=== PATIENT | male | born 1945 | race Caucasian/White ===

== ENCOUNTER 2021-11-06 07:01 | Day surgery (SDC) | payer MEDICARE ==
[2021-11-01 16:03] LABS: CLARITY,URINE CLEAR (Clear); COLOR,URINE YELLOW (Yellow); GLUCOSE, URINE NEGATIVE (Neg); KETONES,URINE NEGATIVE (Neg); LEUKOCYTE ESTERASE ,URINE NEGATIVE (Neg); NITRITES, URINE NEGATIVE (Neg); OCCULT BLOOD,URINE NEGATIVE (Neg); PH,URINE 5.5 (4.8-8.0); PROTEIN,URINE NEGATIVE (Neg); UROBILINOGEN,URINE 0.2 E.U/dL (0.2-1.0)
[2021-11-01 16:04] LABS: UA COLLECTION TYPE CLN CATCH MIDSTREAM
[2021-11-01 16:10] LABS: BASOPHILS # (AUTO) 0.1 X10'3 (0-0.2); BASOPHILS % (AUTO) 1.1 % (0-1); EOSINOPHILS # (AUTO) 0.2 X10'3 (0-0.9); EOSINOPHILS % (AUTO) 2.8 % (0-6); LYMPHOCYTES # (AUTO) 1.4 X10'3 (1.1-4.8); MEAN CORPUSCULAR HEMOGLOBIN 30.9 PG (27.0-31.0); MEAN CORPUSCULAR HGB CONC 33.1 g/dL (33.0-36.5); MEAN CORPUSCULAR VOLUME 93.1 FL (78-98); MEAN PLATELET VOLUME 9.9 FL (7.4-10.4); MONOCYTES # (AUTO) 0.8 X10'3 (0-0.9); MONOCYTES % (AUTO) 10.4 % (2-12); NEUTROPHILS # (AUTO) 5.4 X10'3 (1.8-7.7); NEUTROPHILS % (AUTO) 67.7 % (42-75); PRE OP HEMATOCRIT 42.2 % (42.0-52.0); PRE OP PLATELET COUNT 257 X10'3 (140-440); RED BLOOD COUNT 4.53 X10'6 (4.70-6.10); RED CELL DISTRIBUTION WIDTH 13.8 % (11.5-14.5)
[2021-11-01 16:24] LABS: ALBUMIN 3.7 G/DL (3.4-5.0); ALBUMIN/GLOBULIN RATIO 1.1 (1.1-1.5); ALKALINE PHOSPHATASE 101 IU/L (46-116); BLOOD UREA NITROGEN 20 MG/DL (7-18); BUN/CREATININE RATIO 19.4 (5.4-32.0); CALCIUM 9.6 MG/DL (8.5-10.1); CHLORIDE 105 MMOL/L (99-107); CREATININE 1.03 MG/DL (0.60-1.10); PRE OP ALT 41 U/L (30-65); PRE OP ANION GAP 10 (8-16); PRE OP AST 22 U/L (10-37); PRE OP BILIRUB, TOTAL 0.3 MG/DL (0.0-1.0); PRE OP GLUCOSE 95 MG/DL (70-104); PRE OP POTASSIUM 4.4 MMOL/L (3.4-5.1); PRE OP SODIUM 142 MMOL/L (135-145); TOTAL CARBON DIOXIDE 26.9 MMOL/L (24-32); TOTAL PROTEIN 7.1 G/DL (6.4-8.2); eGFR 70 ML/MIN
[~2021-11-06] VITALS: Ht 193 cm; Wt 133.4 kg
[2021-11-06] VITALS (19 sets, daily range): BP systolic 136–159; BP diastolic 78–91
[~2021-11-06 07:01] MED LIST: ACET-1025 PO; ACET-3080 PO; APIX5TAB3 PO; ARNICARE; ATOR-2 PO; BUPIVAcaine 0.5% inj/PF 30 ML ONE; CBD; CHONDROITIN PO; DICL20GE; DOCUMENT DATE & TIME OF BETA-BLOCKER PO ONE; GLUCOSAMINE PO; Hydrochlorothiazide PO; LOP25T PO; LORA-269 PO; LOSA100T57 PO; OMEP20TA23 PO; OXYGEN NASALCANN; TOLNAFTATE 1%; ceFAZolin inj. 3,000 MG in normal saline 100ml IV soln 100 ML IV ONE; famotidine 20mg tablet PO ONE; ringers solution, lacted 1,000 ML IV SCH
[2021-11-06] MEDS ORDERED: BUPIVAcaine 0.5% inj/PF 30 ml vial IJ ONE (07:11)
[2021-11-06] MEDS ORDERED: acetaminophen 1000 MG/100ml vial IV ONE (08:32)
[2021-11-06] MEDS ORDERED: neostigmine methylsulfate 1 MG/ML 10ml vial ONE (08:32)
[2021-11-06] MEDS ORDERED: glycopyrrolate 0.2mg/ml inj ONE (08:32)
[2021-11-06] MEDS ORDERED: sevoflurane 250ml liquid IH ONE (08:32)
[2021-11-06] MEDS ORDERED: midazolam 1 mg/ML 2ml injection ONE (08:45)
[2021-11-06] MEDS ORDERED: fentaNYL /PF 50mcg/ml 5ml ampule ONE (08:45)
[2021-11-06] MEDS ORDERED: LIDOcaine 2% (20mg/ml) 5ml vial ONE (08:48)
[2021-11-06] MEDS ORDERED: propofol inj 20 ML IV ONE (08:48)
[2021-11-06] MEDS ORDERED: dexamethasone sod phosphate 4mg/ml inj. ONE (09:05)
[2021-11-06] MEDS ORDERED: rocuronium 10mg/ml inj IV ONE ×2 (09:05→10:44)
[2021-11-06] MEDS ORDERED: ondansetron/PF 4mg/2ml inj ONE (09:06)
[2021-11-06] MEDS ORDERED: labetalol 20mg/4ml (5mg/ml) syringe IV ONE (09:14)
[2021-11-06] MEDS ORDERED: meperidine/PF 25mg/ml syringe IV PRN ×3 (09:20)
[2021-11-06] MEDS ORDERED: morphine 2 MG/ML inj. syringe IV PRN (09:20)
[2021-11-06] MEDS ORDERED: ringers solution, lacted 1,000 ML IV SCH (09:20)
[2021-11-06] MEDS ORDERED: proCHLORperazine 10 MG/2 ml inj IV PRN (09:20)
[2021-11-06] MEDS ORDERED: morphine 4 MG/ML inj SYRINge IV PRN (09:20)
[2021-11-06] MEDS ORDERED: ondansetron/PF 4mg/2ml inj IV PRN (09:20)
[2021-11-06] MEDS ORDERED: sugammadex 200mg/2ml injection IV ONE (10:55)
--- NOTE | 2021-11-06 11:02 | NUR ---
Received from OR via [facility] , accompanied by Anesthesiologist Dr. Emmanuel and report given by Anesthesiolgist. Pt is alert and oriented, answering questions appropriately, following directions, able to move all extremenities to command. 3 small surgical sites seen with dermabond in place, no bleeding noted. o2 at 10 ltr mask, vital signs stable.
--- NOTE | 2021-11-06 13:02 | NUR ---
pt disconnected from alarm security or surveillance monitor and dressed, pt assisted to stand at bedside to try and urinate. no results. pt placed back on monitor and pulse ox monitor waiting to urinate. iv fluids remain infusing
--- NOTE | 2021-11-06 14:02 | NUR ---
pt taken to [facility] unit report given to Adelina NICHOLAS, pt awaiting to urinate prior to discharge Addendum: 11/06/21 at 1426 by Zulema Salgado RN Amended: Links added.
--- NOTE | 2021-11-06 14:10 | NUR ---
TOOK OVER CARE OF PT, PT AND MOVED TO ROOM 245, VSS-PT PAIN MINIMAL 2/10, GIVEN COKE TO DRINK AND ENCOURAGED TO WALK A BIT. PT UP AND MOVING ABOUT ROOM SAFELY.
--- NOTE | 2021-11-06 15:30 | NUR ---
PT WALKED AND DRANK FLUID, ATTEMPTED TO VOID X2- UNSUCCESSFULL, F/C PLACED WITH UROJET-YELLOW URINE OUT, PT TOLERATED WELL.
[2021-11-06] MEDS ORDERED: LIDOcaine 2% 10ml TOPICAL JELLY (Urojet) MM ONE (15:35)
[2021-11-06] MEDS ORDERED: HYDROcodone/acetaminophen 5mg/325mg tablet PO ONE (16:20)
--- NOTE | 2021-11-06 16:32 | NUR ---
PT DRESSED WITH F/C ATTACHED, GIVEN F/C CARE INSTRUCTIONS-ALL QUESTIONS ANSWERED, VSS, GIVEN 1 NORCO FOR PAIN, NO OTHER CHANGES IN ASSESSMENT, PT TAKEN VIA W/C TO VEHICLE- TO GIVE TRANSPORT. D/C INSTRUCTIONS GIVEN TO PT EARLIER BY PREVIOUS RN-RECONFIRMED WITH PT AND .
== END 2021-11-06 16:32 | disposition home or self-care (01) ==
LOC: PAS 07:01
PROVIDERS: ATTEND Surgery
DX: K40.90 Unilateral inguinal hernia, without obstruction or gangrene, not specified as recurrent (principal); I48.91 Unspecified atrial fibrillation; G47.30 Sleep apnea, unspecified; I10 Essential (primary) hypertension; M19.90 Unspecified osteoarthritis, unspecified site; Z20.822 Contact with and (suspected) exposure to COVID-19; Z79.899 Other long term (current) drug therapy; Z79.01 Long term (current) use of anticoagulants; Z88.8 Allergy status to other drugs, medicaments and biological substances; Z87.891 Personal history of nicotine dependence; Z90.81 Acquired absence of spleen; Z96.641 Presence of right artificial hip joint; Z98.890 Other specified postprocedural states; Z86.73 Personal history of transient ischemic attack (TIA), and cerebral infarction without residual deficits; Z80.9 Family history of malignant neoplasm, unspecified
CPT/HCPCS: 36415; 49650; 80053; 81003; 82948; 85025; J0131; J0690; J1100; J2250; J2270; J2405; J2704; J2710; J3010; J3490; J7120; S0020; U0003; U0005; Z7512; A4215; A4618; C1758; C1781

== ENCOUNTER 2023-04-28 11:31 | Day surgery (SDC) | payer MEDICARE ==
[2023-04-27 11:38] LABS: BASOPHILS # (AUTO) 0.1 X10'3 (0-0.2); BASOPHILS % (AUTO) 1.2 % (0-1); EOSINOPHILS # (AUTO) 0.2 X10'3 (0-0.9); HEMATOCRIT 45.1 % (42.0-52.0); MEAN CORPUSCULAR VOLUME 94.3 FL (78-98); NEUTROPHILS % (AUTO) 64.9 % (42-75); RED BLOOD COUNT 4.78 X10'6 (4.70-6.10)
[2023-04-27 11:40] LABS: EOSINOPHILS % (AUTO) 2.3 % (0-6); HEMOGLOBIN 14.9 g/dl (14.0-17.9); LYMPHOCYTES # (AUTO) 1.2 X10'3 (1.1-4.8); LYMPHOCYTES % (AUTO) 17.1 % (21-51); MEAN CORPUSCULAR HEMOGLOBIN 31.2 PG (27.0-31.0); MEAN CORPUSCULAR HGB CONC 33.1 g/dL (33.0-36.5); MEAN PLATELET VOLUME 9.9 FL (7.4-10.4); MONOCYTES % (AUTO) 14.5 % (2-12); NEUTROPHILS # (AUTO) 4.6 X10'3 (1.8-7.7); PLATELET COUNT 247 X10'3 (140-440); RED CELL DISTRIBUTION WIDTH 14.5 % (11.5-14.5); WHITE BLOOD COUNT 7.1 X10'3 (4.5-11.0)
[2023-04-27 11:48] LABS: ALBUMIN 3.7 G/DL (3.4-5.0); ANION GAP 3 (8-16); APTT 29 SECONDS (22-32); BLOOD UREA NITROGEN 15 MG/DL (7-18); BUN/CREATININE RATIO 17.6 (10.0-20.0); CALCIUM 9.5 MG/DL (8.5-10.1); CHLORIDE 106 MMOL/L (99-107); CREATININE 0.85 MG/DL (0.60-1.10); GLUCOSE 92 MG/DL (70-104); POTASSIUM 4.2 MMOL/L (3.5-5.1); SODIUM 139 MMOL/L (135-145); TOTAL CARBON DIOXIDE 30.4 MMOL/L (24-32); eGFR 87 ML/MIN
[~2023-04-28] VITALS: Ht 193 cm; Wt 131.3 kg
[2023-04-28] VITALS (9 sets, daily range): BP systolic 139–153; BP diastolic 59–93; PULSE 60–84; RESP 16; TEMP 98.8; O2SAT 92–95
[~2023-04-28 11:31] MED LIST changes: -BUPIVAcaine 0.5% inj/PF 30 ML ONE; -DOCUMENT DATE & TIME OF BETA-BLOCKER PO ONE; -LOSA100T57 PO; +LOSA100T58 PO; -ceFAZolin inj. 3,000 MG in normal saline 100ml IV soln 100 ML IV ONE; -famotidine 20mg tablet PO ONE; -ringers solution, lacted 1,000 ML IV SCH
[2023-04-28] MEDS ORDERED: morphine 10mg/ml inj. IV ONE (12:05)
[2023-04-28] MEDS ORDERED: normal saline 1000ml 1,000 ML IV SCH (12:05)
[2023-04-28] MEDS ORDERED: fentaNYL/PF 50MCG/1 ML 2ML syringe IV ONE (12:05)
[2023-04-28] MEDS ORDERED: MIDAZolam 1mg/ml 10ml vial IV ONE (12:40)
[2023-04-28] MEDS ORDERED: CYAN-34 PO (12:48)
== END 2023-04-28 15:15 | disposition home or self-care (01) ==
LOC: SSTAY O 11:31
PROVIDERS: ATTEND Student in an Organized Health Care Education/Training Program
DX: I48.91 Unspecified atrial fibrillation (principal); I10 Essential (primary) hypertension; E78.5 Hyperlipidemia, unspecified; I71.20 Thoracic aortic aneurysm, without rupture, unspecified; Z88.8 Allergy status to other drugs, medicaments and biological substances; Z79.899 Other long term (current) drug therapy
CPT/HCPCS: 36415; 80048; 85025; 85610; 85730; 92960; 93005; J2250; J3010; J7030; A4314

== ENCOUNTER 2024-04-28 07:58 | Outpatient (CLI) | payer MEDICARE ==
[~2024-04-28 07:58] MED LIST changes: -ACET-3080 PO; -ARNICARE; -CBD; -CHONDROITIN PO; +CYAN-34 PO; -TOLNAFTATE 1%; +iohexol 350 MG/ML 50ML vial IV ONE; +iohexol 350MG/ML 100ml bottle IV ONE
[2024-04-28 08:45] LABS: ALBUMIN 3.5 G/DL (3.4-5.0); ANION GAP 3 (8-16); BLOOD UREA NITROGEN 18 MG/DL (7-18); BUN/CREATININE RATIO 20.7 (10.0-20.0); CALCIUM 9.4 MG/DL (8.5-10.1); CHLORIDE 109 MMOL/L (99-107); CREATININE 0.87 MG/DL (0.60-1.10); GLUCOSE 103 MG/DL (70-104); POTASSIUM 3.5 MMOL/L (3.5-5.1); SODIUM 141 MMOL/L (135-145); TOTAL CARBON DIOXIDE 29.2 MMOL/L (24-32); eGFR 85 ML/MIN
== END 2024-04-28 23:59 | disposition home or self-care (01) ==
LOC: RAD 07:58
PROVIDERS: ATTEND Internal Medicine Interventional Cardiology
DX: I72.3 Aneurysm of iliac artery (principal)
CPT/HCPCS: 36415; 75635; 80048; Q9967